=== PATIENT | female | born 1955 | race American Indian/Alaskan Native ===

== ENCOUNTER 2021-12-05 12:40 | Emergency (ER) | payer MEDICAID ==
[2021-12-05 17:46] VITALS: BP 178/85
[2021-12-05 17:49] LABS: Basophils % (Auto) 0.9 % (0.0-1.8); Eosinophils # (Auto) 0.1 K/mm3 (0.0-0.4); Hematocrit 40.2 % (30.3-42.9); Hemoglobin 12.4 gm/dl (10.1-14.3); Lymphocytes # (Auto) 1.8 K/mm3 (1.2-5.4); Lymphocytes % (Auto) 31.9 % (13.4-35.0); Mean Corpuscular HGB Conc 31 % (30-34); Mean Corpuscular Volume 75 fl (79-97); Monocytes # (Auto) 0.4 K/mm3 (0.0-0.8); Monocytes % (Auto) 7.7 % (0.0-7.3); Platelet Count 259 K/mm3 (140-440); Red Blood Count 5.38 M/mm3 (3.65-5.03)
[2021-12-05] MEDS ORDERED: HALOPERIDOL LACTATE 5 MG/1 ML INJ ONE (17:50)
[2021-12-05] MEDS ORDERED: diphenhydrAMINE 50 MG/ML VIAL ONE (17:51)
[2021-12-05] MEDS ORDERED: LORazepam 2 MG/ML VIAL ONE (17:51)
[2021-12-05] MEDS ORDERED: HALOPERIDOL LACTATE 5 MG/1 ML INJ IM ONE (17:57)
[2021-12-05] MEDS ORDERED: LORazepam 2 MG/ML VIAL IM ONE (17:58)
[2021-12-05] MEDS ORDERED: diphenhydrAMINE 50 MG/ML VIAL IM ONE (17:59)
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
[2021-12-05 18:09] LABS: BUN/Creatinine Ratio 16; Blood Urea Nitrogen 14 mg/dL (7-17); Calcium 8.9 mg/dL (8.4-10.2); Hemolysis Index 1
== END 2021-12-05 22:56 ==
LOC: ED 12:40
DX: F23 Brief psychotic disorder (principal)
CPT/HCPCS: 36415; 80048; 85025; 96372; 99284; J1200; J1630; J2060; 80320; G0480